=== PATIENT | female | born 1975 | race Caucasian/White ===

== ENCOUNTER → 2019-09-26 | Outpatient (CLI) | payer BC ==
--- NOTE | 2019-09-26 20:29 | MR ---
MRI CERVICAL SPINE: CLINICAL HISTORY: G 43.009 migraines and occipital neuralgia. Headaches with neck pain causing pain o r weakness into left arm for 5 days years per patient. TECHNIQUE: Multiplanar, multisequence imaging of the cervical spine is performed without IV contrast. COMPARISON: None. FINDINGS: Some motion artifact aggravation. Sagittal images of the cervical spine show the craniocerv ical junction to appear within normal limits. The cervical and upper. Thoracic spinal cord is normal in caliber and signal. Loss of normal cervical curvature with grade 1 retrolisthesis C5 on C6. The vertebral body heights are normal. Mild disc space narrowing C5-C6 level. The bone marrow signal inte nsity is within normal limits. Axial images show the C2-C3, C3-C4, and C4-C5 levels all to appear within normal limits. Axial images at C5-C6 level shows spondylosis with broad-based posterior disc protrusion mildly effac ing the anterior thecal sac and causing asymmetric mild left-sided neural foraminal narrowing. Axial images at C6-C7 and C7-T1 levels are within normal limits. IMPRESSION: Loss of normal cervical curvature with degenerative changes C5-C6 level noted.
== END | disposition home or self-care (01) ==
LOC: RADMRIMAIN 16:00
PROVIDERS: ATTEND Psychiatry & Neurology Neurology
DX: M47.812 Spondylosis without myelopathy or radiculopathy, cervical region (principal); R90.89 Other abnormal findings on diagnostic imaging of central nervous system
CPT/HCPCS: 72141

== ENCOUNTER → 2019-10-12 | Outpatient (CLI) | payer BC ==
[2019-10-12 11:45] VITALS: BP 123/86; PULSE 87; RESP 16
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
== END | disposition home or self-care (01) ==
LOC: PNWHC3 10:58
PROVIDERS: ATTEND Specialist
DX: G89.29 Other chronic pain (principal); M54.81 Occipital neuralgia; G44.89 Other headache syndrome; M54.2 Cervicalgia; M47.812 Spondylosis without myelopathy or radiculopathy, cervical region; Z87.891 Personal history of nicotine dependence; Z79.899 Other long term (current) drug therapy
CPT/HCPCS: 99211

== ENCOUNTER 2019-10-24 06:20 | Day surgery (SDC) | payer BC ==
[2019-10-18 15:23] VITALS: BMI 27.6
[~2019-10-24 06:20] MED LIST: LACTATED RINGERS 1,000 ML IV SCH
[2019-10-24] MEDS ORDERED: LIDOCAINE 1% 20 ML VIAL (10MG/ML) FOR IV START INTRADERMA ONE (07:11)
[2019-10-24 07:13] VITALS: RESP 16; TEMP 97.3
--- NOTE | 2019-10-24 07:39 | P.PCN ---
Date of Procedure: 10/24/19 Procedure(s) Performed: Preoperative diagnoses= 1-Left Greater occipital neuralgia. 2-cervical spondylosis with cervical facet arthropathy. 3-cervicogenic headache Postoperative diagnoses= same as preoperative diagnosis. Procedure= Left Greater occipital nerve block Anesthesia= moderate sedation with Versed 2 mg and fentanyl 50 micrograms and local infiltration with lidocaine 1% 4 ml Estimated blood loss=minimal. Procedure indication= the patient had a history of severe chronic neck pain ,and headache, diagnosed with occipital neuralgia exam was positive for severe tenderness over the occipital nerve bilaterally, she will be a good candidate occipital nerve block, patient failed conservative management Procedure description= the patient was seen and identified in the preoperative holding area, risks and benefits and alternative of the procedure and possible complications discussed with the patient, and he agreed with the preceding, patient signed the consent, an IV was started, and vital signs were monitored and were stable throughout the procedure, patient was placed in the sitting position or table and the neck area was prepped and draped with a sterile fashion, vital signs were closely monitored during the procedure, 25-gauge needle advanced 1 inch lateral to the occipital protuberance on the left side, at the location of the Left occipital nerve , then after negative aspiration for heme and CSF and there was no paresthesia during the injection, 6 ml of Robivacaine 0.5% and 20 mg of Kenalog injected after negative aspiration, the needle removed. Patient tolerated the procedure well without any complication, The patient returned to supine position after the back was cleaned and a Band- Aid applied, the patient transported to recovery room in stable condition and he was monitored for 30 minutes before he was discharged home and then patient was reexamined before going home and patient was discharged in stable condition and patient will follow up with the pain clinic in a few weeks.
[2019-10-24] MEDS ORDERED: IV FLUID CONTINUATION 700 ML IV ONE (07:50)
[2019-10-24 08:05] VITALS: BP 109/74; PULSE 76
== END 2019-10-24 08:16 | disposition home or self-care (01) ==
LOC: ORPAIN 06:20
PROVIDERS: ATTEND Specialist
DX: G89.29 Other chronic pain (principal); M54.81 Occipital neuralgia; M47.22 Other spondylosis with radiculopathy, cervical region; G43.909 Migraine, unspecified, not intractable, without status migrainosus; Z87.820 Personal history of traumatic brain injury; M79.7 Fibromyalgia; I10 Essential (primary) hypertension; K44.9 Diaphragmatic hernia without obstruction or gangrene; Z98.51 Tubal ligation status; Z98.890 Other specified postprocedural states; Z87.891 Personal history of nicotine dependence; Z79.890 Hormone replacement therapy; Z79.891 Long term (current) use of opiate analgesic; Z79.899 Other long term (current) drug therapy
CPT/HCPCS: 81025; 64405; J2250; J1030; J3010

== ENCOUNTER 2019-11-30 09:08 | Day surgery (SDC) | payer BC ==
[2019-11-06 10:19] VITALS: BMI 27.3
[~2019-11-30 09:08] MED LIST changes: +BUPIVACAINE (PF) 0.5% 30 ML VIAL ONE; +methylPREDNISolone ACETATE 40 MG/ML 1 ML VIAL ONE
[2019-11-30 09:58] VITALS: TEMP 97.8
[2019-11-30] MEDS ORDERED: LIDOCAINE 1% 20 ML VIAL (10MG/ML) FOR IV START INTRADERMA ONE (10:07)
[2019-11-30] MEDS ORDERED: LACTATED RINGERS 1,000 ML IV ONE (10:07)
--- NOTE | 2019-11-30 10:44 | P.PCN ---
Date of Procedure: 11/30/19 Procedure(s) Performed: Pre-operative diagnosis: Bilateral occipital neuralgia Post Operative Diagnosis same Procedure: Bilateral occipital nerve block ANESTHESIA: none EBL: Minimal PROCEDURE INDICATION: The patient with neck pain and headache secondary to occipital neuralgia unresponsive to conservative treatments. PROCEDURE DESCRIPTION / TECHNIQUE: The patient was seen and identified in the preoperative area. Risks, benefits, complications, and alternatives were discussed with the patient, the patient agreed to proceed with the procedure and signed the consent. IV was started. Vital signs remained stable throughout the procedure. Patient was taken to the OR and time out was completed. The patient was placed in the seated position on the procedure table. The cervical area and Bilateral occiptial area were prepped with alcohol swab. Vital signs were closely monitored during the procedure. The Bilateral occiptal ridge was palpated and was then accessed with a 25 G needle. Then after negative aspiration, 3 ml of the block solution containing 2 ml of ropivacaine 0.5% and Depo-Medrol 40 mg was injected. A total of 80 mg of Depo-Medrol was used. Needle was withdrawn intact. Patient tolerated procedure well. No acute complications. Of note, the patient was initially scheduled for left-sided occipital nerve block, however on presentation today is also complaining of right occipital pain consistent with right-sided occipital neuralgia. The decision was made to pro ceed with bilateral occipital nerve blocks, after consulting with insurance risk manager.
[2019-11-30] MEDS ORDERED: IV FLUID CONTINUATION 1,000 ML IV ONE ×2 (10:48)
[2019-11-30 10:51] VITALS: BP 132/89; PULSE 90; RESP 16
== END 2019-11-30 11:25 | disposition home or self-care (01) ==
LOC: ORPAIN 09:08
PROVIDERS: ATTEND Anesthesiology
DX: M54.81 Occipital neuralgia (principal)
CPT/HCPCS: 81025; 64405; J1030

== ENCOUNTER → 2019-12-28 | Outpatient (CLI) | payer BC ==
[2019-12-28 13:11] VITALS: BP 103/72; PULSE 98; RESP 16
--- NOTE | 2020-01-01 10:05 | P.PAINPG ---
Subjective Progress Note Date: 12/28/19 This is a follow-up visit for this 44 year old female with a chronic history of severe headache mostly on the left side, she was diagnosed with occipital neuralgia, referred to our clinic for occipital nerve blocks. She underwent bilateral occipital nerve blocks on 10/24/2019 and 11/30/2019. She returns today for follow-up. She reports that her headaches have reduced both in frequency and intensity, she states that it helped about 25%. She also states that there are not as many excruciating pains that her in bed. Her current medications include propranolol, Fioricet, Cymbalta and topiramate at just helping her symptoms slightly, she denies any motor deficit, but she reported that her headache and neck pain interfering with her quality of life. Her pain is located in the left posterior neck, radiating to left occipital region and left posterior shoulder, with occasional numbness and tingling in left forearm and thumb and index fingers. Pain is rated as 4/10. She does endorse subjective tiredness/weakness. These pains are different from her usual migraines, which are predominantly located on the left side of her head. Review of systems is negative for chest pain, shortness of breath, new onset weakness, numbness/tingling, abdominal pain, malaise, fever, night sweats, chills, homicidal or suicidal ideation, or bowel or bladder incontinence. Physical Exam Physical exam: Vitals: Reviewed in EMR GENERAL: Well appearing, in no acute distress PSYCH: Mood and affect is appropriate. Awake, alert, and oriented SKIN: Skin color, texture, turgor normal, no rashes or lesions HEENT: Normocephalic, atraumatic. EOM intact CV: No pedal edema RESP: Respirations are unlabored, no audible wheezing GI: Abdomen non-distended MUSCULOSKELETAL: Bilateral upper extremity strength is normal and symmetric. No atrophy or tone abnormalities are noted. Neck: Tenderness to palpation along left occipital ridge.. Spurling negative, Axial Loading Test negative, Silva's sign negative. No obvious deformity or signs of trauma. Normal cervical lordotic curve and normal cervical spine range of motion. Extremities: Peripheral joint ROM is full and pain free without obvious instability or laxity in all four extremities. No edema or skin discolorations noted. Gait: Gait is normal NEUR: Bilateral upper extremity coordination and muscle stretch reflexes are physiologic and symmetric. Negative clonus bilaterally. No loss of sensation is noted. Results Comments: MRI of the cervical spine done at = C5 6 cervical spondylosis and C5 6 disc protrusion and left foraminal narrowing Assessment and Plan Plan: Assessment and plan=[id number] occipital neuralgia 2-cervicogenic headache, cervical spondylosis, cervical degenerative disc disease Patient had a moderately good response to occipital nerve blocks. She would likely benefit from a left paramedian cervical epidural steroid injection at C7-T1. We will schedule this. PQRS Measure Charge Sheet Measure #130: Documentation of Current Meds in Medical Chart: Patient's medications documented in chart Measure #226: Tobacco Use: Screen & Cessation Intervention: Pt not a tobacco user Measure #111: Pneumonia Vaccination: Pneumococcal vaccine NOT administered or previously given Measure #47: Advance Care Plan: Advance care planning discussed & documented, pt chose/unable to give Measure #412: Opioid Treatment Agreement: No documentation of signed opioid treatment agreement Measure #408: Opioid Therapy Follow-up Evaluation: Patient had NO f/u eval minimum every 3 months during opioid therapy Measure #317: Preventitive Care & Scrn High Bld Press & F/U: Normal blood pressure, f/u not required Measure #128: Body Mass Index (BMI) Screening & Follow-up: BMI documented ABOVE normal parameters - f/u documented Measure #131: Pain Assessment & Follow-up: Pain positive & plan documented, Foll ow-up scheduled Measure #431: Unhealthy Alcohol Use Preventative Care & Scrn: Patient not identified as an unhealthy alcohol user PQRS Measure Charge Sheet PQRS Narrative: Smoking Status Former smoker Pain Intensity [Left Neck] 5 Scale Used Numeric (1 - 10) Hx Alcohol Use (MH) No Home Medications: Ambulatory Orders Butalb/APAP/Caff 50-325-40Mg [Fioricet 50-325-40] 1 tab PO Q4H PRN 10/12/19 Cholecalciferol (Vitamin D3) [Vitamin D3] 50,000 unit PO WE 10/12/19 DULoxetine HCL [Cymbalta] 60 mg PO DAILY 10/12/19 Estrogen,Con/M-Progest Acet [Prempro 0.625-2.5 mg Tablet] 1 each PO DAILY 10/12/19 Goodier 1 tab PO DIRECTED 10/12/19 Lisinopril [Zestril] 5 mg PO DAILY 10/12/19 Propranolol [Inderal] 10 mg PO BID 10/12/19 Topiramate [Topiramate ER] 50 mg PO DAILY 10/12/19 Controlled Substance Measures - Controlled Substance Measures Is patient prescribed a controlled substance at discharge?: No
== END | disposition home or self-care (01) ==
LOC: PNWHC3 12:17
PROVIDERS: ATTEND Anesthesiology
DX: G89.29 Other chronic pain (principal); M47.812 Spondylosis without myelopathy or radiculopathy, cervical region; M50.30 Other cervical disc degeneration, unspecified cervical region; G44.89 Other headache syndrome; M54.81 Occipital neuralgia; Z87.891 Personal history of nicotine dependence; Z79.899 Other long term (current) drug therapy
CPT/HCPCS: 99211

== ENCOUNTER 2020-01-09 08:03 | Day surgery (SDC) | payer BC ==
[2020-01-08 10:52] VITALS: BMI 27.3
[2020-01-09] MEDS ORDERED: LIDOCAINE 1% 20 ML VIAL (10MG/ML) FOR IV START INTRADERMA ONE (08:20)
[2020-01-09] MEDS ORDERED: LACTATED RINGERS 1,000 ML IV ONE (08:20)
[2020-01-09] MEDS ORDERED: IOPAMIDOL M200 10 ML VIAL ONE (08:24)
[2020-01-09] MEDS ORDERED: DEXAMETHASONE SOD PHOSPHATE 10 MG/ML 1 ML VIAL ONE (08:24)
[2020-01-09] MEDS ORDERED: MIDAZOLAM 2 MG/2 ML VIAL ONE (08:24)
--- NOTE | 2020-01-09 08:24 | P.PCN ---
Date of Procedure: 01/09/20 Description of Procedure: PROCEDURE 1. Cervical epidural steroid injection under fluoroscopic guidance, C7-T1 2. Cervical epidurogram. PREOPERATIVE DIAGNOSIS: Cervical radiculopathy POSTOPERATIVE DIAGNOSIS: Cervical radiculopathy Imaging: Fluoroscopy was used, images where saved to the medical record ANESTHESIA: Local anesthesia with 1% lidocaine and (IV conscious sedation ) PROCEDURE DESCRIPTION / TECHNIQUE: The patient was seen and identified in the preoperative area. Risks, benefits, and alternatives were discused with the patient and the patient has consented to the procedure. Risks of the procedure include potential for bleeding, infection, nerve damage, and incomplete pain relief Rall discussed with the patient. All questions were answered for the patient Patient was taken to the OR and time out was completed. The patient was placed in the prone position on the procedure table. A pillow was placed under the patients chest to increase the cervical interlaminar space. The cervical area was prepped and draped in the usual sterile fashion. Vital signs were closely monitored during the procedure. Using anterior-posterior fluoroscopy, the C7-T1 interlaminar space was identified and the skin over this site was marked and then infiltrated with 1% lidocaine subcutaneously. Subsequently, a 20-gauge 3-1/2-inch Tuohy epidural needle was inserted and advanced toward the epidural space by means of the [id number] technique and guided by AP and lateral fluoroscopy. The correct needle position in the epidural space was verified with the injection of 1 mL of the water soluble contrast dye [id number]-180 and observing an excellent epidurogram with the epidural spread of the dye, after negative aspiration for blood and CSF and in the absence of paresthesias. Again after negative aspiration, a mixture containing 10 mg Dexamethasone and 2 ml of preservative- free normal saline injected and a washout of epidurogram was seen. Needle was withdrawn intact, skin was cleansed, and bandages were applied. Complications: none. Disposition: patient was placed in supine position and transferred to the recovery room area in stable condition and there was no evidence of upper or lower extremity motor or sensory deficit after the procedure patient was discharged from recovery room after discharge criteria met and home discharge instructions was given by the staff and patient would like to repeat the injection in 4 weeks
[2020-01-09 08:28] VITALS: RESP 16; TEMP 97.4
[2020-01-09 09:20] VITALS: BP 100/63; PULSE 75
[2020-01-09] MEDS ORDERED: IV FLUID CONTINUATION 1,000 ML IV ONE (09:20)
--- NOTE | 2020-01-09 09:41 | FL ---
Fluoroscopy HISTORY: Pain 4 seconds fluoroscopy time supplied to the referring clinician. 1 intraoperative C-arm images docume nt the procedure. See dictated report from anesthesia.
== END 2020-01-09 09:30 | disposition home or self-care (01) ==
LOC: ORPAIN 08:03
PROVIDERS: ATTEND Hospitalist
DX: M54.12 Radiculopathy, cervical region (principal); R51 Headache; R20.0 Anesthesia of skin
CPT/HCPCS: 81025; 62321; J2250; J1100; Q9966

== ENCOUNTER 2020-01-23 08:23 | Day surgery (SDC) | payer BC ==
[2020-01-22 11:02] VITALS: BMI 27.3
[~2020-01-23 08:23] MED LIST changes: -BUPIVACAINE (PF) 0.5% 30 ML VIAL ONE; -methylPREDNISolone ACETATE 40 MG/ML 1 ML VIAL ONE
[2020-01-23 08:41] VITALS: TEMP 98
[2020-01-23] MEDS ORDERED: fentaNYL (PF) 50 MCG/ML 2 ML AMP ONE (09:00)
[2020-01-23] MEDS ORDERED: IOPAMIDOL M200 10 ML VIAL ONE (09:00)
[2020-01-23] MEDS ORDERED: MIDAZOLAM 2 MG/2 ML VIAL ONE (09:00)
[2020-01-23] MEDS ORDERED: DEXAMETHASONE SOD PHOSPHATE 10 MG/ML 1 ML VIAL ONE (09:00)
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
--- NOTE | 2020-01-23 09:16 | P.PCN ---
Date of Procedure: 01/23/20 Procedure(s) Performed: . PROCEDURE 1. Cervical epidural steroid injection under fluoroscopic guidance, C7-T1 (left paramedian approach ) (fluoroscopy images available in the radiology department ) 2. Cervical epidurogram. PREOPERATIVE DIAGNOSIS: 1- Cervical Degenerative Disc Diseases 2- Cervicogen ic headache 3-cervical spondylosis with cervical Facet arthropathy without myelopathy POSTOPERATIVE DIAGNOSIS: : 1- Cervical Degenerative Disc Diseases , 2- cervicogenic headache 3-,cervical spondylosis with cervical Facet arthropathy without myelopathy ANESTHESIA: Local anesthesia with lidocaine 1 % , and moderate sedation, with Versed 2 mg and Fentanyl 50 mcg. EBL 0 PROCEDURE INDICATION: The patient with neck pain and radiculitis unresponsive to conservative treatment consents for procedure. PROCEDURE DESCRIPTION / TECHNIQUE: The patient was seen and identified in the preoperative area. Risks, benefits, complications, including but not limited to infections ,bleeding , allergic reactions to the medications ,and not complete pain releife, and alternatives were discussed with the patient, the patient agreed to proceed with the procedure and signed the consent. Patient was taken to the OR and time out was completed. The patient was placed in the prone position on the procedure table. A pillow was placed under the patients chest to increase the cervical interlaminar space. The cervical area was prepped and draped in the usual sterile fashion. Vital signs were closely monitored during the procedure. Conscious sedation was used during the procedure to decrease patients anxiety. Using anterior-posterior fluoroscopy, the C7-T1 interlaminar space was identified and the skin over this site was marked and then infiltrated with 1% lidocaine subcutaneously. Subsequently, a 20-gauge 3-1/2-inch Tuohy epidural needle was inserted and advanced toward the epidural space by means of the ``hanging-drop technique and guided by AP and lateral fluoroscopy. The correct needle position in the epidural space was verified with the injection of 2 mL of the water soluble contrast dye Isovue-200 and observing an excellent epidurogram with the epidural spread of the dye, after negative aspiration for blood and CSF and in the absence of paresthesias. Again after negative aspi ration, mixture containing 20 mg Dexamethasone and 2 ml of preservative-free normal saline injected and a washout of epidurogram was seen. Needle was withdrawn intact, skin was cleansed, and bandages were applied. Complications= none. Disposition= patient was placed in supine position and transferred to the recovery room area in stable condition and there was no evidence of upper or lower extremity motor or sensory deficit after the procedure patient was discharged from recovery room after discharge criteria met and home discharge instructions was given by the staff and patient will follow with the pain clinic in 2-4 weeks
[2020-01-23 09:28] VITALS: RESP 18
[2020-01-23] MEDS ORDERED: IV FLUID CONTINUATION 950 ML IV ONE (09:28)
[2020-01-23] MEDS ORDERED: KETOROLAC 30 MG/ML 1 ML VIAL IVP ONE (09:32)
--- NOTE | 2020-01-23 09:46 | FL ---
EXAMINATION TYPE: FL guided pain mgmt statistic DATE OF EXAM: 01/23/2020 CLINICAL HISTORY: Neck pain. TECHNIQUE: Fluoroscopy. COMPARISON: None. FINDINGS: Fluoroscopic guidance was provided during pain relief procedure performed by Dr. Snow . A total of 6 seconds of fluoroscopic time was utilized during the procedure and two spot images ar e acquired. Images acquired shows needle localization at the cervical thoracic junction. IMPRESSION: As Above.
[2020-01-23 10:06] VITALS: BP 111/70; PULSE 83
== END 2020-01-23 10:16 | disposition home or self-care (01) ==
LOC: ORPAIN 08:23
PROVIDERS: ATTEND Specialist
DX: G89.29 Other chronic pain (principal); M50.10 Cervical disc disorder with radiculopathy, unspecified cervical region; M47.22 Other spondylosis with radiculopathy, cervical region; M79.7 Fibromyalgia; I10 Essential (primary) hypertension; M54.81 Occipital neuralgia; G43.909 Migraine, unspecified, not intractable, without status migrainosus; Z87.828 Personal history of other (healed) physical injury and trauma; Z90.49 Acquired absence of other specified parts of digestive tract; Z98.891 History of uterine scar from previous surgery; Z98.51 Tubal ligation status; Z98.890 Other specified postprocedural states; Z87.891 Personal history of nicotine dependence; Z79.891 Long term (current) use of opiate analgesic; Z79.899 Other long term (current) drug therapy; Z79.818 Long term (current) use of other agents affecting estrogen receptors and estrogen levels; Z79.82 Long term (current) use of aspirin
CPT/HCPCS: 81025; 62321; J2250; J1100; J3010; J1885; Q9966

== ENCOUNTER → 2020-11-04 | Outpatient (CLI) | payer BC ==
[2020-11-04 13:20] VITALS: BP 135/93; PULSE 105; RESP 16; TEMP 98
--- NOTE | 2020-11-04 13:39 | P.PN ---
Subjective Progress Note Date: 11/04/20 This is a 45-year-old lady with history of chronic neck pain mostly on the left side with radiation to the upper shoulder age. The patient also feels numbness in her left arm which goes to the hand. She had cervical epidural steroid injection a few months ago which gave her only 20% of pain relief which lasted only for 1 week as she states. She also complains of occasional headache and she failed to respond to occipital nerve block previously. Patient denies new-onset weakness, bowel/bladder incontinence, or any other signs or symptoms of cauda equina syndrome. There are no signs of acute intoxication, and no indications of medication diversion or overuse. In addition to above, 13-point review of systems is also negative for chest pain, shortness of breath, changes in vision, changes in hearing, new onset weakness, abdominal pain, diarrhea, extreme fatigue, malaise, fever, skin changes, homicidal or suicidal ideation, or bowel or bladder incontinence. Vital Signs: Reviewed in EMR Gen: AAOx3, NAD HEENT: PERRLA,hearing grossly normal Pulm: resp unlabored Neck: supple, trachea midline Neuro exam of the upper extremities: Normal muscle strength bilaterally and symmetrically for hand rougher helper and wrist flexion and extension but decreased elbow flexion and extension to 4 out of 5 and deltoid abduction to 4 out of 5. Tenderness in the paravertebral musculature: Positive tenderness in the cervical area and left trapezius muscle Neuro: CN II-XII grossly intact, Imaging: Reviewed in EMR/chart Assessment: Cervical spondylosis without myelopathy Left cervical radiculopathy Cervicogenic headache Plan: 1. Explanation: Opioid and psychological risk scores were reviewed. Diagnoses, prognoses, and multiple treatment options including but not limited to physical therapy, interventional therapies, adjuvant medical therapies, narcotic m edication therapies, and surgery were discussed with the patient and all questions were answered to the patient's satisfaction. 2. Opioid agreement: Signed with the patient and the patient is warned not to use opioids while driving or before driving and not to combine opioids with benzodiazepines or alcohol. 3. Counseling: The patient was counseled extensively on SMOKING CESSATION, BODY MASS INDEX, EXERCISE. Specifically, the patient was instructed regarding the importance of smoking cessation, obesity, and exercise in the context of both chronic pain and overall health. 4. Procedures: The patient may benefit from diagnostic cervical medial branch block for levels C4, C5, and C6 on the left side under fluoroscopic guidance. The procedure was explained to the patient and her questions were answered. For cervicogenic headache she also might benefit in the future for diagnostic C2, C3 and third occipital nerve block on the left side. 5. Consultations: None 6. Investigations: None 7. Medications: None 8. Disposition: Return to the above-mentioned procedure as soon as possible 9. Maps were reviewed and were appropriate. Objective - Vital Signs Vital signs: Vital Signs Temp 98.0 F 11/04/20 13:13 Pulse 105 H 11/04/20 13:13 Resp 16 11/04/20 13:13 BP 135/93 11/04/20 13:13 Pulse Ox 98 11/04/20 13:13
== END | disposition home or self-care (01) ==
LOC: PNWHC3 13:02
PROVIDERS: ATTEND Anesthesiology
DX: M47.22 Other spondylosis with radiculopathy, cervical region (principal); R51.9 Headache, unspecified
CPT/HCPCS: 99211

== ENCOUNTER → 2023-03-02 | Outpatient (CLI) | payer BC ==
[2023-03-02 15:44] LABS: Basophils # (A) 0.05 X 10*3/uL (0.00-0.10); Basophils % (A) 0.6 %; Eosinophils # (A) 0.29 X 10*3/uL (0.04-0.35); Eosinophils % (A) 3.6 %; HCT 47.1 % (37.2-46.3); Immature Grans, Automated 0.1 %; Lymphocytes # (A) 2.47 X 10*3/uL (0.90-5.00); Lymphocytes % (A) 30.6 %; MCH 29.5 pg (27.0-32.0); MCHC 31.8 g/dL (32.0-37.0); MCV 92.5 fL (80.0-97.0); Mean Platelet Volume 11.1 fL (9.5-12.2); Monocytes # (A) 0.55 X 10*3/uL (0.20-1.00); Monocytes % (A) 6.8 %; NRBC Per 100 WBC 0 /100 WBCS (0.0-0.0); Neutrophils % (A) 58.3 %; Platelet Count 302 X 10*3/uL (140-440); RBC 5.09 X 10*6/uL (4.10-5.20); RDW 12.8 % (11.5-14.5); WBC 8.07 X 10*3/uL (4.50-10.00)
[2023-03-02 15:48] LABS: Appearance,Urine Clear (Clear); Bilirubin,Urine Negative (Negative); Blood,Urine Negative (Negative); Color,Urine Yellow (Yellow); Ketones,Urine Negative (Negative); Nitrite,Urine Negative (Negative); Specific Gravity,Urine 1.023 (1.001-1.030)
[2023-03-02 15:52] LABS: Bacteria,Urine 1+ /HPF (None Seen)
[2023-03-02 16:14] LABS: African American GFR (CKD) 120.8 (60.0-200.0); Anion Gap 9.8 mmol/L (10.00-18.00); BUN/Creat Ratio 24.27 Ratio (12.00-20.00); Blood Urea Nitrogen 15.8 mg/dL (9.0-27.0); Carbon Dioxide 22.5 mmol/L (20.0-27.5); Non-African American GFR(CKD) 104.2 (60.0-200.0); Potassium 4.3 mmol/L (3.5-5.5)
== END | disposition home or self-care (01) ==
LOC: LABPAT 09:29
PROVIDERS: ATTEND Urology
DX: Z01.812 Encounter for preprocedural laboratory examination (principal); N39.3 Stress incontinence (female) (male); R31.29 Other microscopic hematuria
CPT/HCPCS: 36415; 80048; 81001; 85025; 87086

== ENCOUNTER 2023-03-10 06:46 | Observation (INO) | payer BC ==
[2023-03-05 10:39] VITALS: BMI 28.3
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
[~2023-03-10 06:46] MED LIST changes: +AMPICILLIN 1,000 MG in SODIUM CHLORIDE 0.9% 50 ML IVPB PRN; +DEXAMETHASONE SOD PHOSPHATE 4 MG/ML 1 ML VIAL IV ONE; -LACTATED RINGERS 1,000 ML IV SCH; +LIDOCAINE 1% (10MG/ML) FOR IV START INTRADERMA PRN; +ONDANSETRON 4 MG/2 ML VIAL IVP ONE; +SCOPOLAMINE 1 MG/72 HR PATCH TRANSDERM ONE
[2023-03-10] MEDS ORDERED: HYDROmorphone 0.5 MG/0.5 ML SYRINGE IVP PRN (07:00)
[2023-03-10] MEDS: LACTATED RINGERS 1,000 ML IV SCH ×2 (08:12→15:22)
[2023-03-10] MEDS ORDERED: FAMOTIDINE 20 MG/2 ML VIAL IVP ONE (08:14)
[2023-03-10] MEDS ORDERED: BACITRACIN ZINC 500 UNIT/GM OINT 28.4 GM TUBE TOPICAL ONE (08:22)
[2023-03-10] MEDS ORDERED: LIDOCAINE 2% INJ 20 MG/ML (2 ML VIAL) ONE (08:25)
[2023-03-10] MEDS ORDERED: SUCCINYLCHOLINE CHLORIDE 200 MG/10 ML VIAL IV ONE (08:25)
[2023-03-10] MEDS ORDERED: LIDOCAINE 4% LTA KIT (4 ML) TOPICAL ONE (08:25)
[2023-03-10] MEDS ORDERED: PROPOFOL 10 MG/ML 20 ML VIAL IV ONE (08:25)
[2023-03-10] MEDS ORDERED: MIDAZOLAM 2 MG/2 ML VIAL ONE (08:25)
[2023-03-10] MEDS ORDERED: fentaNYL (PF) 50 MCG/ML 2 ML AMP ONE (08:25)
[2023-03-10] MEDS ORDERED: GENTAMICIN 80 MG in SODIUM CHLORIDE 0.9% 500 ML 500 ML IRRIGATION ONE (08:25)
[2023-03-10] MEDS ORDERED: LACTATED RINGERS 1,000 ML IV ONE ×2 (08:26→09:11)
[2023-03-10] MEDS: GENTAMICIN 80 MG in SODIUM CHLORIDE 0.9% 100 ML IVPB PRN ×2 (08:46→08:51)
[2023-03-10] MEDS ORDERED: VASOPRESSIN 20 UNIT/ML 1 ML VIAL SQ ONE (08:48)
[2023-03-10] MEDS ORDERED: BUTALB/APAP/CAFF 50-325-40MG TAB PO PRN (09:20)
[2023-03-10] MEDS ORDERED: tiZANidine 4 MG TAB PO PRN (09:20)
[2023-03-10] MEDS ORDERED: ONDANSETRON 4 MG/2 ML VIAL IVP PRN (09:21)
[2023-03-10] MEDS ORDERED: ACETAMINOPHEN TAB 500 MG TAB PO PRN (09:24)
--- NOTE | 2023-03-10 09:27 | P.OP ---
Date of Procedure: 03/10/23 Preoperative Diagnosis: Stress urinary incontinence Postoperative Diagnosis: Same plus grade 2-3 cystocele Procedure(s) Performed: Trans-obturator tape with obtryx 2, cystoscopy, anterior repair Anesthesia: LEOBARDO Surgeon: Surendra Otero Estimated Blood Loss (ml): 25 Pathology: none sent Condition: stable Disposition: PACU Indications for Procedure: The patient is 47. She has documented stress urinary incontinence. She has a small cystocele which appears larger intraoperatively and will be repaired. Him for a trans-obturator tape. Description of Procedure: Patient brought to the operating suite. Given general anesthesia on the operating table. Placed lithotomy position with a sterile prep and drape. The labia are sewn laterally with 2-0 silk. A vaginal speculum was introduced as was a 16-Hungarian Umanzor catheter. The anterior vaginal mucosa was elevated off the submucosa with 10 mL of 20 g of Pitressin and 200 ml of saline. A midline suburethral incision is made. The cystocele was identified and reduced 2. I then dissect lateral the bladder neck bilaterally. I make 2 incisions at the level of the clitoris bilaterally in the inguinal crease. I passed the introducers through the incisions around the obturator foramen into the vaginal space bilaterally. I then performed cystoscopy with a 17-Hungarian sheath and Foroblique lens to make sure there is no bladder injury and there is none. The Umanzor catheters were introduced. I then attached the graft of the trans- obturator tape to the introducers and pull the graft back through the obturator foramen in the inguinal incisions. The graft lay in the mid urethra nicely. The redundant achieving is removed. I then close the cystocele by using 2-0 Vicryl stitches in the paravaginal tissue bilaterally. I then excised redundant vaginal mucosa. I then closed the vaginal mucosa with a running 2-0 Vicryl. I excised the redundant graft at the inguinal incisions and closed the inguinal incisions with 4-0 Vicryl. A vaginal packing is placed. The patient is awakened and returned recovery room good condition. Blood loss is 25 mL. The urine remains clear. She'll be placed in the hospital postoperatively
[2023-03-10] MEDS: DEXTROSE 5%-0.45% NACL 1,000 ML IV SCH ×2 (12:39→23:41)
[2023-03-10] MEDS: SUCRALFATE 1 GM TAB PO SCH ×3 (12:40→20:05)
[2023-03-10] MEDS: KETOROLAC 15 MG/ML 1 ML VIAL IVP PRN ×2 (14:38→20:51)
[2023-03-10] MEDS: PROPRANOLOL 10 MG TAB PO SCH (20:05)
[2023-03-11] MEDS: KETOROLAC 15 MG/ML 1 ML VIAL IVP PRN (03:56)
[2023-03-11 06:41] VITALS: BP 107/73; PULSE 90; RESP 16; TEMP 98.6
[2023-03-11] MEDS: SUCRALFATE 1 GM TAB PO SCH (06:47)
--- NOTE | 2023-03-11 08:10 | P.DS ---
Providers Date of admission: 03/10/23 09:15 Expected date of discharge: 03/11/23 Attending physician: Surendra Otero Primary care physician: Amor Shearerar - Discharge Diagnosis(es) (1) SEFERINO (stress urinary incontinence, female) Status: Acute Hospital Course: The patient is a 47 year-old female with documented seferino on history and physical exam. She attempted aggressive kegal exercises and failed. Treatment options were discussed in detail. On 03/10/23 she underwent a trans-obturator tape with obtryx 2, cystoscopy, anterior repair of cystocele. She tolerated the procedure well and was placed in the hospital post operatively. POD#1 The patient reports minimal discomfort. Her Wall catheter was removed and she was able to void without difficulty. PVR 59. Her vaginal packing was removed. She is tolerating a regular diet. She will follow up with Dr. Otero in one week. The patient has been interviewed and examined by me and I concur with the above document Surendra Otero MD Patient Condition at Discharge: Good Plan - Discharge Summary Discharge Rx Participant: No New Discharge Prescriptions: Continue Propranolol [Inderal] 10 mg PO BID lisinopriL [Zestril] 5 mg PO DAILY DULoxetine HCL [Cymbalta] 60 mg PO DAILY Cholecalciferol (Vitamin D3) [Vitamin D3] 50,000 unit PO WE Topiramate [Topiramate ER] 50 mg PO DAILY Aspirin/Acetaminophen/Caffeine [Goody's Ex-Str Powder Packet] 1 each PO DIRECTED PRN PRN Reason: Migraine Headache Butalb/APAP/Caff 50-325-40Mg [Fioricet 50-325-40] 1 tab PO DAILY PRN PRN Reason: migraines tiZANidine HCL 2 mg PO DAILY PRN PRN Reason: Pain Sucralfate [Carafate] 1 gm PO ACHS Discharge Medication List Cholecalciferol (Vitamin D3) [Vitamin D3] 50,000 unit PO WE 10/12/19 [History] DULoxetine HCL [Cymbalta] 60 mg PO DAILY 10/12/19 [History] Propranolol [Inderal] 10 mg PO BID 10/12/19 [History] Topiramate [Topiramate ER] 50 mg PO DAILY 10/12/19 [History] lisinopriL [Zestril] 5 mg PO DAILY 10/12/19 [History] Aspirin/Acetaminophen/Caffeine [Goody's Ex-Str Powder Packet] 1 each PO DIRECTED PRN 01/22/20 [History] Butalb/APAP/Caff 50-325-40Mg [Fioricet 50-325-40] 1 tab PO DAILY PRN 10/29/20 [History] tiZANidine HCL 2 mg PO DAILY PRN 10/29/20 [History] Sucralfate [Carafate] 1 gm PO ACHS 03/10/23 [History] Follow up Appointment(s)/Referral(s): Surendra Otero MD [STAFF PHYSICIAN] - 03/17/23 2:00 pm Patient Instructions/Handouts: Bladder Sling for Women (GEN) Activity/Diet/Wound Care/Special Instructions: - No heavy lifting, straining, or strenuous activity - Take Tylenol or Mortrin for discomfort - You may shower, no tub baths - It is normal to have some bloody vaginal discharge Discharge Disposition: HOME SELF-CARE
[2023-03-11] MEDS ORDERED: lisinopriL 5 MG TAB PO SCH (09:00)
[2023-03-11] MEDS ORDERED: TOPIRAMATE 25 MG TAB PO SCH (09:00)
[2023-03-11] MEDS ORDERED: DULoxetine HCL 60 MG CAPSULE.DR PO SCH (09:00)
[2023-03-11] MEDS: PROPRANOLOL 10 MG TAB PO SCH (10:18)
== END 2023-03-11 10:18 | disposition home or self-care (01) ==
LOC: OR 06:46 → 6NMEDSUR 09:15 → OR 09:15 → 6NMEDSUR 09:36
PROVIDERS: ADMIT Urology; ATTEND Urology
DX: N39.3 Stress incontinence (female) (male) (principal); N81.10 Cystocele, unspecified; N36.41 Hypermobility of urethra; I10 Essential (primary) hypertension; M79.7 Fibromyalgia; K21.9 Gastro-esophageal reflux disease without esophagitis; G43.909 Migraine, unspecified, not intractable, without status migrainosus; K44.9 Diaphragmatic hernia without obstruction or gangrene; Z79.899 Other long term (current) drug therapy; Z87.891 Personal history of nicotine dependence; Z87.828 Personal history of other (healed) physical injury and trauma; Z90.49 Acquired absence of other specified parts of digestive tract; Z98.891 History of uterine scar from previous surgery; Z98.51 Tubal ligation status; Z98.890 Other specified postprocedural states
CPT/HCPCS: 81025; 57240; 57288; G0378; C1771; J2250; J0330; J1580 ×2; J1100; J2405 ×2; J3010; J0290; J1885 ×2; J2704; J1170; J2001

== ENCOUNTER → 2023-09-07 | Outpatient (CLI) | payer OTHER ==
--- NOTE | 2023-09-07 14:39 | XR ---
EXAMINATION TYPE: XR knee limited RT DATE OF EXAM: 09/07/2023 2:26 PM INDICATION: Patient age:Female; 48 years old; Reason for study: M79.7 Fibromyalgia M54.50 Pain lumbar M25.561; [facility]. COMPARISON: None. TECHNIQUE: The Right knee(s) was examined in frontal and lateral projections. FINDINGS: No evidence of any acute osseous pathology, soft tissue swelling, or joint effusion is no evy. No significant joint space narrowing. Incidental fabella. IMPRESSION: No acute osseous pathology.
--- NOTE | 2023-09-07 14:40 | XR ---
EXAMINATION TYPE: XR lumbosacral spine min 4V DATE OF EXAM: 09/07/2023 2:25 PM INDICATION: Patient age:Female; 48 years old; Reason for study: M79.7 Fibromyalgia M54.50 Pain lumbar M25.561; [facility]. COMPARISON: None TECHNIQUE: Frontal, lateral , bilateral oblique and coned in L5-S1 lateral views of the spine. FINDINGS: There are 5 lumbar type vertebral bodies identified. No evidence of any acute osseous patho logy. No evidence of loss of vertebral body height is seen. There is normal alignment of the lumbar vertebral bodies. Mild disc space narrowing with endplate sclerosis at L5-S1. IMPRESSION: 1. No acute process. 2. Mild degenerative disc disease at L5-S1.
== END | disposition home or self-care (01) ==
LOC: RADXRMAIN 13:51
PROVIDERS: ATTEND Family Medicine
DX: M79.7 Fibromyalgia (principal); M54.50 Low back pain, unspecified; M51.37 Other intervertebral disc degeneration, lumbosacral region; M25.561 Pain in right knee
CPT/HCPCS: 72110